=== PATIENT | female | born 1975 | race Caucasian/White ===

== ENCOUNTER 2016-06-25 17:00 | Emergency (ER) | payer SELFPAY ==
[~2016-06-25] VITALS: Wt 47.5 kg
--- NOTE | 2016-06-25 17:53 | ERD ---
ER Documentation Chief Complaint Date/Time DATE: 06/25/16 TIME: 17:52 Chief Complaint dysuria and low back pain for the past few days HPI This is a 40-year-old presenting to the emergency room complaining of on and off painful urination for the past year. Patient states that she has had painful urination for the past 3 days. She admits to having low back pain rating it mild in severity. Denies any hematuria. Denies fevers. In addition patient is complaining of a mole on her nose for the past 4 months ROS All systems reviewed and are negative except as per history of present illness. Medications Home Meds Active Scripts Nitrofurantoin Monohyd Macrocr* (Macrobid*) 100 Mg Capsr, 100 MG PO BID for 7 Days, CAP Prov:ELO VELASCO PA-C 06/25/16 Allergies Allergies: Coded Allergies: No Known Allergy (Unverified , 06/25/16) PMhx/Soc History of Surgery: Yes (abd tumor) Anesthesia Reaction: No Hx Neurological Disorder: No Hx Respiratory Disorders: No Hx Cardiac Disorders: No Hx Psychiatric Problems: No Hx Miscellaneous Medical Probl: No Hx Alcohol Use: No Hx Substance Use: No Hx Tobacco Use: No Smoking Status: Never smoker Physical Exam Vitals Vital Signs Date Time Temp Pulse Resp B/P Pulse Ox O2 Delivery O2 Flow Rate FiO2 06/25/16 19:29 98.7 79 16 106/70 100 Room Air 06/25/16 17:11 98.7 88 20 113/62 98 Physical Exam GENERAL: well-developed/well-nourished, in no apparent distress, non-toxic appearing HENT: NC/AT, moist mucous membranes EYES: Conjunctiva normal NECK: Supple, no lymphadenopathy PULM: CTA bilaterally, no rales, rhonchi, or wheezing heard CV: Normal S1S2, RRR, good capillary refill GI: Soft, non-distended, non-tender to palpation Normal bowel sounds, no masses or organomegaly felt on exam No gross peritonitis, no bruits Negative Rovsing, negative Aaron, negative McBurney's point, Negative CVAT BACK: No masses EXT: No clubbing, cyanosis, or edema NEURO: Alert and Orientated SKIN: Intact, normal turgor PSYCH: Normal mood and mentation Results 24 hrs Laboratory Tests Test 06/25/16 18:30 Urine Bacteria MANY Urine Bilirubin NEGATIVE Urine Clarity SLIGHTLY CLOUDY Urine Color LT. YELLOW Urine Glucose NEGATIVE% Urine Hemoglobin NEGATIVE Urine Ketones NEGATIVE Urine Leukocyte Esterase TRACE Urine Microscopic RBC 0-2/HPF Urine Microscopic WBC 2-5/HPF Urine Nitrite POSITIVE Urine Specific [place] 1.010 Urine Squamous Epithelial Cells MODERATE Urine Total Protein NEGATIVE Urine Urobilinogen 0.2 E.U./dL Urine pH 7.5 Procedures/MDM This is a 40-year-old female presents to the ER with urinary tract infection. Low suspicion for pyelonephritis, nephrolithiasis, ovarian torsion due to physical examination and diagnostic testing. Patient did not have any CVA tenderness, she is afebrile and appears well. UA showed positive nitrite and leukocyte esterase, patient will be treated with Macrobid outpatient. I discussed with patient that she needs to follow-up with a senior physical therapist to get the nevi checked and with the possible biopsy. Patient is in stable condition for discharge. Prescriptions have been given to take as directed. Strict precautions were given to return to the ER if not improving as expected or for any worsening signs and symptoms Departure Diagnosis: Primary Impression: Nevus Additional Impression: UTI (urinary tract infection) Urinary tract infection type: acute cystitis Hematuria presence: with hematuria Qualified Code: N30.01 - Acute cystitis with hematuria Condition: Stable ELO VELASCO PA-C Jun 25, 2016 17:53
[2016-06-25 18:52] LABS: ADD UMIC YES; URINE BILIRUBIN (Dip) NEGATIVE (NEGATIVE); URINE BLOOD (Dip) NEGATIVE (NEGATIVE); URINE COLOR LT. YELLOW (YELLOW); URINE GLUCOSE (Dip) NEGATIVE (NEGATIVE); URINE KETONES (Dip) NEGATIVE (NEGATIVE); URINE LEUKOCYTE ESTERASE (Dip) TRACE (NEGATIVE); URINE NITRITE (Dip) POSITIVE (NEGATIVE); URINE TOTAL PROTEIN (Dip) NEGATIVE (NEGATIVE); URINE UROBILINOGEN (Dip) 0.2 E.U./dL (0.1-1.0)
[2016-06-25 19:05] LABS: BACTERIA,URINE MANY; SQUAMOUS EPITHELIAL CELL,UR MODERATE; URINE RBCS 0-2 /HPF (0)
[2016-06-25] MEDS ORDERED: NITR-58 PO (19:25)
[2016-06-25 19:29] VITALS: BP 106/70; PULSE 79; RESP 16; TEMP 98.7
== END 2016-06-25 19:30 | disposition home or self-care (01) ==
LOC: FTE 17:00
DX: D22.9 Melanocytic nevi, unspecified (principal); N30.01 Acute cystitis with hematuria
CPT/HCPCS: 81001; 81003; 99283

== ENCOUNTER 2016-08-02 23:47 | Emergency (ER) | payer SELFPAY ==
[~2016-08-02] VITALS: Ht 147.3 cm; Wt 47.9 kg
[~2016-08-02 23:47] MED LIST: NITR-58 PO
[2016-08-02 23:53] VITALS: Ht 147.3 cm; Wt 47.9 kg
[2016-08-03 03:27] LABS: URINE BLOOD (Dip) POC Trace-lysed (NEGATIVE)
[2016-08-03] MEDS ORDERED: NITR-58 PO (03:30)
[2016-08-03] MEDS ORDERED: PHEN-538 PO (03:30)
--- NOTE | 2016-08-03 03:33 | ERD ---
ER Documentation Chief Complaint Date/Time DATE: 08/03/16 TIME: 03:32 Chief Complaint painful urination x 3 weeks HPI This is a 40-year-old female presented to the emergency room complaining of painful urination for the past week with urgency and frequency. Patient admits to having some mild pelvic discomfort. Patient states that her last urinary tract infection was 3 months ago. She denies any fevers. Denies any blood in the urine. ROS All systems reviewed and are negative except as per history of present illness. Medications Home Meds Active Scripts Phenazopyridine Hcl* (Pyridium*) 200 Mg Tab, 200 MG PO TID Y for URINARY PAIN, # 6 TAB Prov:ELO VELASCO PA-C 08/03/16 Nitrofurantoin Monohyd Macrocr* (Macrobid*) 100 Mg Capsr, 100 MG PO BID for 7 Days, CAP Prov:ELO VELASCO-C 08/03/16 Nitrofurantoin Monohyd Macrocr* (Macrobid*) 100 Mg Capsr, 100 MG PO BID for 7 Days, CAP Prov:ELO VELASCO PA-C 06/25/16 Allergies Allergies: Coded Allergies: No Known Allergy (Unverified , 06/25/16) PMhx/Soc History of Surgery: Yes (abd tumor; SX IN [place]) Anesthesia Reaction: No Hx Neurological Disorder: No Hx Respiratory Disorders: No Hx Cardiac Disorders: No Hx Psychiatric Problems: No Hx Miscellaneous Medical Probl: No Hx Alcohol Use: No Hx Substance Use: No Hx Tobacco Use: No Smoking Status: Never smoker Physical Exam Vitals Vital Signs Date Time Temp Pulse Resp B/P Pulse Ox O2 Delivery O2 Flow Rate FiO2 08/02/16 23:53 98.2 85 20 117/70 100 Physical Exam General: well-developed/well-nourished, in no apparent distress, non-toxic appearing HENT: NC/AT Eyes: Conjunctiva normal Neck: Supple Pulm: CTA bilaterally, normal breathing CV: Normal S1S2 GI: Soft, non-distended, normal bowel sounds, TTP on suprapubic region Back: No midline tenderness, no masses, No CVAT Ext: No clubbing, cyanosis, or edema Neuro: Alert and orientated Skin: intact, normal turgor Psych: Normal mood and mentation Results 24 hrs Laboratory Tests Test 08/03/16 03:30 Bedside Urine Blood Trace-lysed Bedside Urine Glucose (UA) Negative Bedside Urine Ketones (LAB) Negative Bedside Urine Leukocyte Esterase (L 2+ Bedside Urine Nitrite (LAB) Negative Bedside Urine Protein (LAB) Negative Bedside Urine pH (LAB) 5.5 Procedures/MDM MDM: 40-year-old female presents to the ER with urinary tract infection. Low suspicion for pyelonephritis, nephrolithiasis, ovarian torsion due to physical examination and diagnostic testing. Urine dipstick showed +2 leukocyte esterase. Urine test is negative. Patient appears well and afebrile hemodynamically stable for discharge. Prescriptions Macrobid and Pyridium have been given to take as directed. Strict precautions were given to return to the ER if not improving as expected or for any worsening signs and symptoms Departure Diagnosis: Primary Impression: UTI (urinary tract infection) Condition: Stable Patient Instructions: Dysuria, Understanding Urinary Tract Infections (UTIs) Additional Instructions: FOLLOW UP WITH YOUR PRIMARY CARE PHYSICIAN TOMORROW.Return to this facility if you are not improving as expected. Take all medicines as directed. Return to this facility if you are not improving as expected. ELO VELASCO PA-C Aug 03, 2016 03:33
== END 2016-08-03 04:31 | disposition home or self-care (01) ==
LOC: FTE 23:47
DX: N39.0 Urinary tract infection, site not specified (principal); R10.2 Pelvic and perineal pain
CPT/HCPCS: 81003; 99283